=== PATIENT | male | born 1975 | race Caucasian/White ===

== ENCOUNTER 2022-05-06 09:56 | Emergency (ER) | payer BC ==
[~2022-05-06] VITALS: Ht 170.2 cm; Wt 70.5 kg
--- NOTE | 2022-05-06 10:29 | NUR ---
Updated MD Martinez of pt hx and referral [facility] hemothor[facility] and fx ribs from 05/04/22. Received VO for C-Xray, 1 view
[2022-05-06] MEDS ORDERED: HYDR-3972 PO (11:43)
[2022-05-06 12:54] VITALS: BP 139/72
== END 2022-05-06 12:45 | disposition home or self-care (01) ==
LOC: ER 10:00
DX: S22.41XA Multiple fractures of ribs, right side, initial encounter for closed fracture (principal); M25.471 Effusion, right ankle; V18.2XXA Unspecified pedal cyclist injured in noncollision transport accident in nontraffic accident, initial encounter; Y93.89 Activity, other specified; Y92.89 Other specified places as the place of occurrence of the external cause; Y99.8 Other external cause status
CPT/HCPCS: 71045; 99284